=== PATIENT | male | born 1985 | race Caucasian/White ===

== ENCOUNTER 2018-02-08 23:08 | Emergency (ER) | payer OTHER, SELFPAY ==
[2018-02-08 23:08] VITALS: BP 132/73; PULSE 81; RESP 18; TEMP 36.4; O2SAT 99; BMI 33.1
--- NOTE | 2018-02-08 23:18 | ED.RN ---
pt reports drinking at the bar tonight and walking to the ed. pt reports that he is walking home.
--- NOTE | 2018-02-08 23:29 | ED.VIS.GEN ---
History of Present Illness Chief Complaint: Bite Informant: Patient Onset: Days - 2 Context: Gradual Onset Timing: Continuous Quality: red, swollen, painful Location: R hand Current Severity: Moderate Maximum Severity: Moderate Worsened by: shaking hands / palpation Relieved by: remaining still Narrative: 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 He states the cat is not ill, and he does not know what its rabies shot status is, but the cat is able to be monitored. This occurred 2 days ago, and he has gradually developed redness, pain and swelling surrounding the bite area. [id number]-iyoftpuu. Last tetanus unknown. Past Medical History - Allergies and Home Meds Allergies/Adverse Reactions: Allergies No Known Allergies Allergy (Verified 02/08/18 23:08) Primary Care Physician: Dennis White MD [Primary Care Provider] - 3-5 Days if not improving Past Medical History: None Smoking Status: Never smoker Review of Systems General: Denies: Chills, Fever Musculoskeletal: Reports: Swelling, Extremity Pain Skin: Reports: Wounds - w/ surrounding redness and occasional clear discharge from bite wounds Neurological: Denies: Weakness, Parasthesia, Numbness Physical Exam Vital Signs/Narrative: Vital Signs Temp Pulse Resp BP Pulse Ox 02/08/18 23:08 97.5 F L 81 18 132/73 H 99 Inital Vital Signs reviewed: Yes General: Well nourished, Well developed, - - well-appearing, nad Head: Normocephalic, Atraumatic Extremities: Tenderness - Throughout dorsum of right hand, and volar thenar eminence and first webspace. Bite wound is at the dorsal aspect of the first webspace and radial aspect of the proximal index finger. There is no discharge expressible from either of the bite wounds. There is no lymphangitis or epitrochlear lymphadenopathy. He has full range of motion of all flexor and extensor tendons throughout his fingers, and full range of motion of the wrist, all without any pain or difficulty. All compartments are soft. Skin: - - Erythema surrounding right hand wounds, into dorsum of hand, and into the volar thenar eminence but not the entire compartment. No erythema at or proximal to the wrist. No abscess. Neurological: Alert, Oriented x3, Cranial nerves II-XII grossly intact, Normal Strength, Normal Sensation, Normal Gait Psychological: Normal affect Diagnostic/Tx/Re-eval - Medical Decision Making Patient was amenable to a dose of IV Unasyn, his tetanus was updated, and I discussed rabies with him. He does not need vaccinated now, since the animal is able to be monitored for the next 10 days. He was advised that if the cat becomes ill within the next 10 days, he should seek evaluation for possible rabies vaccination. He is prescribed Augmentin and advised to follow-up or return if worse. We soaked his hand and dressed it with bacitracin. He is comfortable with the overall plan. ED Disposition - Plan for ED Patient: Disposition: Home or Assisted Living Chief Complaint: Bite Diagnosis: Pasteurella cellulitis due to cat bite, Immunization, tetanus-diphtheria Instructions: ED Bite Cat Prescriptions: Amoxicillin/Potassium Clav [Augmentin 875-125 Tablet] 1 ea PO BID #20 tab Referrals: Dennis White MD [Primary Care Provider] - 3-5 Days if not improving
[2018-02-08] MEDS: Diphth,Pertuss(Acell),Tet Vac 0.5 ML Vial IM (23:38)
[2018-02-09 00:49] VITALS: BP 122/76; PULSE 78; RESP 18; O2SAT 99
--- NOTE | 2018-02-09 00:50 | ED.RN ---
pt given written and verbal discharge instructions and home going prescriptions. pt verbalizes understanding and denies any further questions. pt iv d/c and covered with 2x2 gauze dressing and paper tape. pt ambulates out of dept by self.
--- OUTSIDE RECORDS SUMMARY | 2018-04-04 21:57 | XMS RPT_ITS ---
:1985 Author Organization [facility] Care Team Providers Name Role Phone Dennis White Primary Care Unavailable KANDACE GRIFFITH Attending Unavailable PROBLEMS PROBLEMS No Problem Records FoundPROCEDURES PROCEDURES No Procedure Records FoundRESULTS RESULTS EMERGENCY DEPARTMENT Observed: 02/09/2018 Status: F Source: TEMPE SUMMARY 12:28 AM [facility] [place], [place] REPOSITORY [facility] Medical Records Department [address] [place] [id number] Emergency Department Summary 02/08/18 2329 MR#: [id number] Acct: [id number] Name: PEDRITO OJEDA Rep #: [id number] : 1985 32 From: Kandace Griffith MD PCP: Dennis White MD Status: REG ER History of Present Illness Chief Complaint: Bite Informant: Patient Onset: Days - 2 Context: Gradual Onset Timing: Continuous Quality: red, swollen, painful Location: R hand Current Severity: Moderate Maximum Severity: Moderate Worsened by: shaking hands / palpation Relieved by: remaining still Narrative: 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 He states the cat is not ill, and he does not know what its rabies shot status is, but the cat is able to be monitored. This occurred 2 days ago, and he has gradually developed redness, pain and swelling surrounding the bite area. [id number]. Last tetanus unknown. Past Medical History - Allergies and Home Meds Allergies/Adverse Reactions: Allergies No Known Allergies Allergy (Verified 02/08/18 23:08) Primary Care Physician: Dennis White MD [Primary Care Provider] - 3-5 Days if not improving Past Medical History: None Smoking Status: Never smoker Review of Systems General: Denies: Chills, Fever Musculoskeletal: Reports: Swelling, Extremity Pain Skin: Reports: Wounds - w/ surrounding redness and occasional clear discharge from bite wounds Neurological: Denies: Weakness, Parasthesia, Numbness Physical Exam Vital Signs/Narrative: Vital Signs 02/08/18 23:08 97.5 F L 81 18 132/73 H 99 Inital Vital Signs reviewed: Yes General: Well nourished, Well developed, - - well-appearing, nad Head: Normocephalic, Atraumatic Extremities: Tenderness - Throughout dorsum of right hand, and volar thenar eminence and first webspace. Bite wound is at the dorsal aspect of the first webspace and radial aspect of the proximal index finger. There is no discharge expressible from either of the bite wounds. There is no lymphangitis or epitrochlear lymphadenopathy. He has full range of motion of all flexor and extensor tendons throughout his fingers, and full range of motion of the wrist, all without any pain or difficulty. All compartments are soft. Skin: - - Erythema surrounding right hand wounds, into dorsum of hand, and into the volar thenar eminence but not the entire compartment. No erythema at or proximal to the wrist. No abscess. Neurological: Alert, Oriented x3, Cranial nerves II-XII grossly intact, Normal Strength, Normal Sensation, Normal Gait Psychological: Normal affect Diagnostic/Tx/Re-eval - Medical Decision Making Patient was amenable to a dose of IV Unasyn, his tetanus was updated, and I discussed rabies with him. He does not need vaccinated now, since the animal is able to be monitored for the next 10 days. He was advised that if the cat becomes ill within the next 10 days, he should seek evaluation for possible rabies vaccination. He is prescribed Augmentin and advised to follow-up or return if worse. We soaked his hand and dressed it with bacitracin. He is comfortable with the overall plan. ED Disposition - Plan for ED Patient: Disposition: Home or Assisted Living Chief Complaint: Bite Diagnosis: Pasteurella cellulitis due to cat bite, Immunization, tetanus-diphtheria Instructions: ED Bite Cat Prescriptions: Amoxicillin/Potassium Clav [Augmentin 875-125 Tablet] 1 ea PO BID #20 tab Referrals: Dennis White MD [Primary Care Provider] - 3-5 Days if not improving What to do if you have Problems For any increased pain, shortness of breath, bleeding, nausea or vomiting, chest pain, or any unexpected problems, contact your Primary Care Provider. Call [facility] ([phone]) or report to the closest Emergency Room. Call 911 if necessary. 02/09/18 0028 <Electronically signed by Kandace Griffith MD> Date Kandace Griffith MD Cosigner Signature (If Indicated): Date CC: Dennis White MD ALLERGIES ALLERGIES DATE TYPE / CODE NAME / CODE REACTION SEVERITY SOURCE 02/08/2018 Drug No Known Unknown [facility] Allergy/4160 Allergies/F00 [facility] [address]134(SNOMED [id number](RXNOR Repository CT) M) ENCOUNTERS ENCOUNTERS ADMIT/DISCHARGE ACCOUNT ADMITTING ENCOUNTER LOCATION SOURCE NUMBER CLASS 02/08/2018/ [id number] Emergency [place] 8 [facility] ing:ED Repository PAYERS PAYERS ENCOUNTER GUARANTOR PAYER SUBSCRIBER SOURCE 02/08/2018 Pedrito Shanique Primary [place] [id number] [place] Insurance:MEDICAL [id number] [address]Dad: Number: Repository [id number] (HP) Date:[id number] [address]EW: 02/08/2018 Secondary NOT GIVENUNK Chanell Insurance:SELF PAY [facility] Number: Effective Repository Date:2018-02-08
== END 2018-02-09 00:51 | disposition home or self-care (01) ==
LOC: ED 23:37
PROVIDERS: Emergency Provider Emergency Medicine; Family Provider Family Medicine; PCP Family Medicine
DX: L03.113 Cellulitis of right upper limb (principal); W55.01XA Bitten by cat, initial encounter; Z23 Encounter for immunization
CPT/HCPCS: 90471; 90715; 96365; 99284; J7050; J0295

== ENCOUNTER 2019-10-08 22:49 | Emergency (ER) | payer OTHER, SELFPAY ==
[2019-10-08 22:50] VITALS: BP 139/74; PULSE 72; RESP 18; TEMP 36.6; O2SAT 100; BMI 31.6
--- NOTE | 2019-10-08 23:04 | ED.VISSUMM ---
- ER Visit Summary Date of Service: 10/08/19 Chief Complaint: [Chin laceration] History of Present Illness: The patient is a 33 M [presents to the emergency department complaint of an injury to his chin that occurred around 7:30 PM. Patient states he was playing lacrosse when another player got him in the chin with his helmet. No loss of consciousness. Patient continued to play. Patient went home and ate and the wound kept opening up. Patient is up-to-date on tetanus. He denies any other injuries.] Physical Examination: [HEENT-PERRLA, EOMI. Cranial nerves II through XII grossly intact. TMs clear. Mucous membranes moist. No adenopathy. Patient has a 3 cm laceration vertical central portion of the chin. No bony tenderness on exam. No malocclusion. No evidence of dental injury noted. Tenderness over the mandible. Cardiovascular-regular rate and rhythm without murmur or ectopy Lungs-clear to auscultation, chest wall stable without crepitus or subcu emphysema Abdomen-normoactive bowel sounds, soft, nontender, no rebound or rigidity, no peritoneal signs. Extremities-intact ?4, normal range of motion, normal pulses, atraumatic] Test Results: [None indicated] Emergency Department Course and Treatment: [Laceration repair-wound sterilely draped and prepped. Wound anesthetized locally with 1% lidocaine total 4 cc. Wound cleansed with Shur-Clens and irrigated with copious saline. Using 6-0 nylon a total of 4 single ruptured sutures placed with good wound edge approximation. Patient taught procedure well.] Treatment Plan: [] Patient referred to primary care physician for follow-up in 5 to 7 days for suture removal. Patient advised to return if increasing pain, redness, swelling, purulent drainage, or condition should worsen anyway. Disposition: [Discharged home in stable condition] Impression: [Chin laceration-3 cm-simple repair] This note was generated with [employer] dictation software. It may contain incorrect words, spelling, and punctuation that were not noted in review of the chart prior to signing ED Disposition - Plan for ED Patient: Referrals: NOT,DEFINED [Primary Care Provider] -
--- NOTE | 2019-10-08 23:18 | ED.DEP ---
ED Disposition - Plan for ED Patient: Instructions: ED Laceration Facial Sutr Tape Referrals: NOT,DEFINED [Primary Care Provider] - Ignacio Chappell MD [STAFF PHYSICIAN] - 5 Days for suture removal
== END 2019-10-08 23:26 | disposition home or self-care (01) ==
LOC: ED 23:21
PROVIDERS: Emergency Provider Emergency Medicine
DX: S01.81XA Laceration without foreign body of other part of head, initial encounter (principal); W51.XXXA Accidental striking against or bumped into by another person, initial encounter; Y93.65 Activity, lacrosse and field hockey; Y92.328 Other athletic field as the place of occurrence of the external cause; Y99.8 Other external cause status
CPT/HCPCS: 12013; 99282

== ENCOUNTER → 2019-11-13 10:39 | Outpatient (CLI) | payer OTHER, SELFPAY ==
[2019-11-13 10:41] LABS: Mucous, Urine 0 SEEN /hpf (<or=2+); Red Blood Cells-Urine 0 SEEN /hpf (0-5)
[2019-11-13 12:19] LABS: Color, Urine Yellow (Yellow); Glucose, Dipstick Normal (Normal); Ketone-Dipstick 5 mg/dl (Negative); Leukocyte Esterase-Dipstick 25 /ul (Negative); Nitrite-Dipstick Negative (Negative); Occult Blood-Urine Negative /ul (Negative); Protein-Dipstick Negative (Negative); Specific Gravity, Urine 1.025 (1.002-1.030); Urine Bilirubin Dipstick Negative (Negative); Urine Clarity Sl. Cloudy (Clear); Urine Urobilinogen Normal (Normal)
[2019-11-13 12:22] LABS: Absolute Lymphocyte Count 2.14 X10^3/uL (0.83-4.51); Absolute Neutrophil Count 2.5 X10^3/uL (2.0-7.7); Basophil# 0.03 X10^3/uL; Basophil% 0.6 % (0-1); Eosinophil# 0.06 X10^3/uL; Eosinophils% 1.1 % (0-5); Hematocrit 42.6 % (40-54); Hemoglobin 13.9 g/dL (13.0-16.5); Lymphocyte # 2.14 X10^3/ul (4.0); Lymphocyte % 40.2 % (19-41); Mean Corp Hgb Conc 32.6 g/dL (32-36); Mean Corpuscular Hgb 29.1 pg (27.0-32.0); Mean Corpuscular Volume 89.1 fL (80-94); Mean Platelet Vol. 10.1 fl (6.2-12.0); Monocyte# 0.56 X10^3/uL; Monocyte% 10.5 % (0-10); NRBC Flagged by Analyzer 0 % (0-5); Neutrophil # 2.52 X10^3/uL (2.7-7.7); Neutrophil % 47.2 % (47-70); Platelet Count 253 K/mm3 (150-450); RBC Distribution Width CV 13.2 % (11.6-14.6); RBC Distribution Width SD 43.1 fl (35.1-43.9); Red Blood Count 4.78 M/mm3 (4.6-6.2); White Blood Count 5.3 K/mm3 (4.4-11.0)
[2019-11-13 12:43] LABS: Bacteria 2+ /hpf (None Seen); Squamous Epithelial Cells - UA 0-5 SEEN /hpf (0-5); White Blood Cells 0-5 SEEN /hpf (0-5)
[2019-11-13 13:07] LABS: ALB/GLOB Ratio 1.2 RATIO (0.9-2.4); AST(SGOT) 36 U/L (15-37); Alanine Aminotransfer ALT/SGPT 40 U/L (16-61); Albumin, Serum 4.2 g/dL (3.2-5.0); Alkaline Phosphatase 52 U/L (45-117); Anion Gap 4 (5-15); BUN 18 mg/dL (7-18); BUN/Creat Ratio 15.4 RATIO (10-20); Calcium,Total 8.8 mg/dL (8.5-10.1); Chloride 105 mmol/L (98-107); Cholesterol 157 mg/dL (200); Creatinine, Serum 1.17 mg/dL (0.70-1.30); EST Glomerular Filtration Rate 75 mL/min (>60); Est Glom Filt Rate - Afr Amer 91 mL/min (>60); Globulin 3.4 g/dL (2.2-4.2); Glucose 82 mg/dL (74-106); High Density Lipoprotein 49 mg/dL; Potassium 4.2 mmol/L (3.5-5.1); Protein, Total 7.6 g/dL (6.4-8.2); Sodium Level 139 mmol/L (136-145); Thyroid Stim Hormone (TSH) 1.34 uIU/mL (0.358-3.74); Triglycerides 52 mg/dL; Very Low Density Lipoprotein 10 mg/dL (5-40)
== END ==
PROVIDERS: PCP Family Medicine; Referring Provider Family Medicine; Visit Provider Family Medicine
DX: Z00.00 Encounter for general adult medical examination without abnormal findings (principal)
CPT/HCPCS: 36415; 80053; 80061; 81001; 84443; 85025

== ENCOUNTER → 2022-01-19 | Outpatient (CLI) | payer OTHER, SELFPAY ==
[2022-01-19 17:45] LABS: Absolute Lymphocyte Count 2.22 X10^3/uL (0.83-4.51); Basophil# 0.03 X10^3/uL; Basophil% 0.4 % (0-1); Eosinophils% 1.4 % (0-5); Hematocrit 43.2 % (40-54); Hemoglobin 14.5 g/dL (13.0-16.5); Lymphocyte # 2.22 X10^3/ul (0.83-4.51); Lymphocyte % 32.1 % (19-41); Mean Corp Hgb Conc 33.6 g/dL (32-36); Mean Corpuscular Hgb 29.2 pg (27.0-32.0); Mean Corpuscular Volume 86.9 fL (80-94); Mean Platelet Vol. 10.3 fl (6.2-12.0); Monocyte# 0.55 X10^3/uL; Monocyte% 7.9 % (0-10); NRBC Flagged by Analyzer 0 % (0-5); Neutrophil % 57.9 % (47-70); Platelet Count 244 K/mm3 (150-450); RBC Distribution Width CV 12.9 % (11.6-14.6); RBC Distribution Width SD 40.6 fl (35.1-43.9); Red Blood Count 4.97 M/mm3 (4.6-6.2); White Blood Count 6.9 K/mm3 (4.4-11.0)
[2022-01-19 18:08] LABS: ALB/GLOB Ratio 1.2 RATIO (0.9-2.4); AST(SGOT) 29 U/L (15-37); Alanine Aminotransfer ALT/SGPT 36 U/L (16-61); Alkaline Phosphatase 47 U/L (45-117); Amylase 57 U/L (25-115); Anion Gap 8 (5-15); BUN 22 mg/dL (7-18); BUN/Creat Ratio 18.8 RATIO (10-20); Calcium,Total 9.1 mg/dL (8.5-10.1); Chloride 106 mmol/L (98-107); Creatinine, Serum 1.17 mg/dL (0.70-1.30); EST Glomerular Filtration Rate 74 mL/min (>60); Est Glom Filt Rate - Afr Amer 90 mL/min (>60); Globulin 3.3 g/dL (2.2-4.2); Glucose 99 mg/dL (74-106); Lipase 336 U/L (73-393); Protein, Total 7.3 g/dL (6.4-8.2); Sodium Level 138 mmol/L (136-145)
== END | disposition home or self-care (01) ==
LOC: MFPLAB 15:13
PROVIDERS: Nurse Practitioner Family; PCP Family Medicine; Referring Provider Family Medicine; Visit Provider Family Medicine
DX: R10.9 Unspecified abdominal pain (principal)
CPT/HCPCS: 36415; 80053; 82150; 83690; 85025

== ENCOUNTER → 2022-02-05 | Outpatient (CLI) | payer OTHER, SELFPAY ==
--- NOTE | 2022-02-05 07:54 | US_ITS ---
STUDY: ABDOMINAL ULTRASOUND REASON FOR EXAM: Male, 36 years old. RLQ pain/food related TECHNIQUE: Transabdominal ultrasound was performed with real-time and static ascencio scale imaging. TECHNICAL QUALITY: Adequate. COMPARISON: None. FINDINGS: Liver: The liver is mildly enlarged and measures 18.3 cm. There is increased echogenicity consistent with fatty infiltration. The bile ducts are within normal limits. There is hepatic color flow. The direction of portal flow is hepatopetal. There is no demonstrated mass lesion. Portal vein measurement: Gallbladder: Normal distended gallbladder. The gallbladder wall measures 3 mm. There is a negative sonographic Dorado''s sign. There is no pericholecystic fluid. There are no gallstones. Common Bile Duct (C.B.D.): The common bile duct measures 4 mm. Pancreas: There is nonvisualization of the pancreas due to overlying bowel gas. Spleen: Normal size of the spleen. The spleen measures 11.1 cm x 5.9 cm x 5.1 cm. Right Kidney: Normal size of the right kidney. The right kidney measures 11.8 cm x 6.7 cm x 6.4 cm. Normal renal cortex. The right cortex measures 1.6 cm. There is no demonstrated renal mass or cyst. There is no right hydronephrosis. Left Kidney: Normal size of the left kidney. The left kidney measures 12.7 cm x 6 cm x 6.1 cm. Normal renal cortex. The left cortex measures 1.7 cm. There is no demonstrated renal mass or cyst. There is no left hydronephrosis. Aorta: Unremarkable. I.V.C.: The IVC is patent. There is no ascites. US/Abdomen Complete IMPRESSION: Mild hepatomegaly. Diffuse fatty infiltration of the liver. Electronically Signed: Sukhjinder Hay MD at 15:15 EST ,
== END | disposition home or self-care (01) ==
PROVIDERS: PCP Family Medicine; Referring Provider Nurse Practitioner Family; Visit Provider Nurse Practitioner Family
DX: R10.9 Unspecified abdominal pain (principal)
CPT/HCPCS: 76700

== ENCOUNTER → 2022-04-03 | Outpatient (CLI) | payer OTHER, SELFPAY ==
[2022-04-03 13:12] LABS: ALB/GLOB Ratio 1.6 RATIO (0.9-2.4); AST(SGOT) 42 U/L (15-37); Alanine Aminotransfer ALT/SGPT 45 U/L (16-61); Albumin, Serum 4.5 g/dL (3.2-5.0); Alkaline Phosphatase 57 U/L (45-117); Anion Gap 8 (5-15); BUN 27 mg/dL (7-18); BUN/Creat Ratio 30.9 RATIO (10-20); Calcium,Total 9.8 mg/dL (8.5-10.1); Chloride 104 mmol/L (98-107); Creatinine, Serum 0.87 mg/dL (0.70-1.30); EST Glomerular Filtration Rate 104 mL/min (>60); Est Glom Filt Rate - Afr Amer 125 mL/min (>60); Globulin 2.9 g/dL (2.2-4.2); Glucose 87 mg/dL (74-106); Potassium 4.3 mmol/L (3.5-5.1); Protein, Total 7.4 g/dL (6.4-8.2); Sodium Level 139 mmol/L (136-145)
== END | disposition home or self-care (01) ==
LOC: MFPLAB 10:36
PROVIDERS: PCP Family Medicine; Referring Provider Family Medicine; Visit Provider Nurse Practitioner Family
DX: K70.0 Alcoholic fatty liver (principal)
CPT/HCPCS: 36415; 80053

== ENCOUNTER → 2022-10-08 | Outpatient (CLI) | payer OTHER, SELFPAY ==
[2022-10-08 15:19] LABS: ALB/GLOB Ratio 1.2 RATIO (0.9-2.4); AST(SGOT) 69 U/L (15-37); Alanine Aminotransfer ALT/SGPT 69 U/L (16-61); Alkaline Phosphatase 63 U/L (45-117); Anion Gap 2 (5-15); BUN 20 mg/dL (7-18); BUN/Creat Ratio 16.4 RATIO (10-20); Bilirubin, Direct 0.16 mg/dL (0.00-0.30); Calcium,Total 9.3 mg/dL (8.5-10.1); Chloride 108 mmol/L (98-107); Creatinine, Serum 1.22 mg/dL (0.70-1.30); EST Glomerular Filtration Rate 70 mL/min (>60); Est Glom Filt Rate - Afr Amer 85 mL/min (>60); Globulin 3.4 g/dL (2.2-4.2); Glucose 88 mg/dL (74-106); Potassium 4.4 mmol/L (3.5-5.1); Protein, Total 7.4 g/dL (6.4-8.2); Sodium Level 140 mmol/L (136-145)
== END | disposition home or self-care (01) ==
LOC: MFPLAB 12:26
PROVIDERS: PCP Family Medicine; Visit Provider Nurse Practitioner Family
DX: K70.0 Alcoholic fatty liver (principal)
CPT/HCPCS: 36415; 80053; 82248

== ENCOUNTER → 2022-10-26 | Outpatient (CLI) | payer OTHER, SELFPAY | END | disposition home or self-care (01) | PROVIDERS: PCP Family Medicine; Referring Provider Nurse Practitioner Family; Visit Provider Nurse Practitioner Family | DX: K70.0 Alcoholic fatty liver (principal) ==

== ENCOUNTER → 2022-10-29 | Outpatient (CLI) | payer OTHER, SELFPAY ==
[2022-10-29 18:31] LABS: ALB/GLOB Ratio 1.3 RATIO (0.9-2.4); AST(SGOT) 37 U/L (15-37); Alanine Aminotransfer ALT/SGPT 39 U/L (16-61); Albumin, Serum 4.4 g/dL (3.2-5.0); Alkaline Phosphatase 66 U/L (45-117); Anion Gap 7 (5-15); BUN 19 mg/dL (7-18); BUN/Creat Ratio 16.2 RATIO (10-20); Calcium,Total 9.3 mg/dL (8.5-10.1); Chloride 108 mmol/L (98-107); Creatinine, Serum 1.17 mg/dL (0.70-1.30); EST Glomerular Filtration Rate 74 mL/min (>60); Est Glom Filt Rate - Afr Amer 89 mL/min (>60); Globulin 3.3 g/dL (2.2-4.2); Glucose 96 mg/dL (74-106); Potassium 3.8 mmol/L (3.5-5.1); Protein, Total 7.7 g/dL (6.4-8.2); Sodium Level 141 mmol/L (136-145)
== END | disposition home or self-care (01) ==
PROVIDERS: PCP Family Medicine; Referring Provider Nurse Practitioner Family; Visit Provider Nurse Practitioner Family
DX: K70.0 Alcoholic fatty liver (principal)
CPT/HCPCS: 36415; 80053

== ENCOUNTER → 2023-04-05 | Outpatient (CLI) | payer OTHER, SELFPAY ==
--- OUTSIDE RECORDS SUMMARY | 2023-04-05 07:33 | XMS RPT_ITS | CCD ---
Author Name Unknown Address [address] [place] [address] Organization [facility] Care Team Providers Care Plaster Mixer Name Role Phone DENNY CRUZ Dilshad Primary Care Unavailable Results Test Name Value Interpretation Reference Range Facil ity Encounters Encounter Date Encounter Type Care Provider Facility Start: 02-14-2023 End: 02-14-2023 ambulatory DENNY Dilshad CRUZ Facility:[facility] Payers Date Payer Category Payer Unknown [id number] Progress note 02-14-2023 Note Date & Type Note Facility 02-14-2023 Note HNO ID: [id number] Author: Damaris Hernandez PA Service: ? Author Type: Physician Vulcanizer Operator Type: Progress Notes Filed: 02/14/2023 2:06 PM Note Text: This note was created using [employer]. Subjective Pedrito Ojeda is a 37 year old male. HPI 37-year-old male presents for left ring finger laceration. Patient states that he walked past a machine and cut his finger on an aluminum machine. He states that he is still able to move the finger. He had some bleeding from it. Not on any blood thinners. He states that the machine is dirty and is worried about potential infection. He denies history of diabetes. Last tetanus was in 2018. No past medical history on file. No past surgical history on file. ALLERGIES Patient has no known allergies. MEDICATIONS cephALEXin (KEFLEX) 500 mg capsule Take 1 capsule by mouth two times a day for 5 days. albuterol sulfate (PROAIR RESPICLICK) 90 mcg/actuation aepb Inhale 2 Puffs as instructed every 4 hours as needed. (Patient not taking: Reported on 02/14/2023) Tjbjlxyyuegtvzq-Honcvgpao-LD (BROMFED DM) 2-30-10 mg/5 mL syrup Take 10 mL by mouth three times daily as needed. (Patient not taking: Reported on 02/14/2023) benzonatate (TESSALON PERLES) 100 mg capsule Take 1-2 capsules by mouth three times daily as needed. (Patient not taking: Reported on 02/14/2023) No family history on file. Social History Tobacco Use Smoking status: Never Smokeless tobacco: Former Review of Systems Constitutional: Negative for fever. Respiratory: Negative for shortness of breath. Gastrointestinal: Negative for vomiting. Skin: Positive for wound. Negative for rash. Neurological: Negative for numbness. Objective BP 102/78 Pulse 72 Temp 36.4 ?C (97.6 ?F) Resp 21 Wt 124.8 kg (275 lb 3.2 oz) SpO2 98% Physical Exam Vitals and nursing note reviewed. Constitutional: General: He is not in acute distress. Appearance: Normal appearance. He is not toxic-appearing. Musculoskeletal: Left hand: Laceration present. No swelling, deformity, tenderness or bony tenderness. Normal range of motion. Normal sensation. There is no disruption of two-point discrimination. Normal capillary refill. Normal pulse. Hands: Comments: Flap-like 1.5 cm laceration over lateral surface of the left ring finger at the DIP joint. Normal flexion extension of the digit. Normal sensation. Cap refill less than 2 seconds. No active bleeding. No foreign body seen. No drainage. No erythema. Skin: General: Skin is warm and dry. Neurological: Mental Status: He is alert. UNIVERSAL PROTOCOL / SAFETY CHECKLIST Procedure to be Performed: Laceration repair with sutures Verbal consent obtained from patient. Sign In: A Moment of CARE was completed. No special equipment needed. Patient/Surrogate Stated/Verified: PATIENT VERIFIED(optional for EMERGENT procedures): Patient name, Date of , Relevant allergies, and The intended procedure Time Out Communication: Intended patient and procedure match the source documents. No relevant labs, photos, and/or imaging studies were applicable for review. Medications required for procedure verified. Sign Out: SIGN OUT (optional for EMERGENT procedures): No specimen collected. Post-procedure follow-up management communicated and Plan of Care Visit completed when applicable. Laceration repair: Wound cleansed with Hibiclens and sterile water. Irrigated with sterile water. 3 cc of 1% lidocaine injected locally around the laceration. 3 sutures placed- 4-0 Prolene. Patient tolerated procedure well. Bleeding controlled. Neurovascularly intact after procedure. Bacitracin and sterile bandage applied Assessment and Plan ASSESSMENT/PLAN: 1. Laceration of left ring finger without foreign body without damage to nail, initial encounter - ICD9: 883.0, ICD10: S61.215A -See procedure above. 3 sutures placed. -Patient given wound care instructions. Advised he may apply bacitracin ointment OTC. Suture removal in 7 to 10 days. -Keep wound clean and dry. -Rx for Keflex due to dirty work environment. -Tetanus is up-to-date. Diagnosis and treatment plan were discussed and questions were answered to the patient's satisfaction. Pt acknowledged understanding of concepts and follow up plan. Specific signs and symptoms that would indicate the need for higher level of care were discussed in detail warranting prompt ER evaluation. SIL Dunlap [facility] Summary Purpose Family History No Family History Records Found Advance Directives No Advanced Directives Records Found Additional Source Comments (unrecognized sect ion and content) No Status Records Found INFORMATION SOURCE (unrecogn ized section and content) FOR RECORDS PERTAINING TO PATIENTS WHO ARE OR HAVE BEEN ENROLLED IN A CHEMICAL DEPENDENCY/SUBSTANCEABUSE PROGRAM, SOME INFORMATION MAY BE OMITTED. This clinical summary was aggregated from multiple sources. Caution should be exercised in using it in the provision of clinical care. This summary normalizes information from multiple sources, and as a consequence, information in this document may materially change the coding, format and clinical context of patient data. In addition, data may be omitted in some cases. CLINICAL DECISIONS SHOULD BE BASED ON THE PRIMARY CLINICAL RECORDS. [employer] provides no warranty or guarantee of the accuracy or completeness of information in this document.
[2023-04-05 10:13] LABS: Absolute Lymphocyte Count 2.12 X10^3/uL (0.83-4.51); Absolute Neutrophil Count 2.6 X10^3/uL (2.0-7.7); Basophil# 0.05 X10^3/uL; Basophil% 0.9 % (0-1); Eosinophil# 0.07 X10^3/uL; Eosinophils% 1.3 % (0-5); Hematocrit 46.4 % (40-54); Lymphocyte # 2.12 X10^3/ul (0.83-4.51); Lymphocyte % 39.7 % (19-41); Mean Corp Hgb Conc 32.3 g/dL (32-36); Mean Corpuscular Hgb 27.7 pg (27.0-32.0); Mean Corpuscular Volume 85.8 fL (80-94); Mean Platelet Vol. 10.7 fl (6.2-12.0); Monocyte% 9.4 % (0-10); NRBC Flagged by Analyzer 0 % (0-5); Neutrophil # 2.58 X10^3/uL (2.7-7.7); Neutrophil % 48.3 % (47-70); Platelet Count 244 K/mm3 (150-450); RBC Distribution Width CV 13.4 % (11.6-14.6); Red Blood Count 5.41 M/mm3 (4.6-6.2); White Blood Count 5.3 K/mm3 (4.4-11.0)
[2023-04-05 10:39] LABS: ALB/GLOB Ratio 1.4 RATIO (0.9-2.4); AST(SGOT) 30 U/L (15-37); Alanine Aminotransfer ALT/SGPT 41 U/L (16-61); Albumin, Serum 4.2 g/dL (3.2-5.0); Alkaline Phosphatase 51 U/L (45-117); Anion Gap 3 (5-15); BUN 18 mg/dL (7-18); BUN/Creat Ratio 18.7 RATIO (10-20); Calcium,Total 9.2 mg/dL (8.5-10.1); Chloride 106 mmol/L (98-107); Cholesterol 196 mg/dL (200); Creatinine, Serum 0.96 mg/dL (0.70-1.30); EST Glomerular Filtration Rate 92 mL/min (>60); Est Glom Filt Rate - Afr Amer 112 mL/min (>60); Globulin 3.1 g/dL (2.2-4.2); Glucose 95 mg/dL (74-106); High Density Lipoprotein 42 mg/dL; Potassium 4.1 mmol/L (3.5-5.1); Protein, Total 7.3 g/dL (6.4-8.2); Sodium Level 138 mmol/L (136-145); Thyroid Stim Hormone (TSH) 1.35 uIU/mL (0.358-3.74); Triglycerides 211 mg/dL; Very Low Density Lipoprotein 42 mg/dL (5-40)
== END | disposition home or self-care (01) ==
LOC: MTLAB 07:23
PROVIDERS: PCP Family Medicine; Referring Provider Family Medicine; Visit Provider Family Medicine
DX: Z00.00 Encounter for general adult medical examination without abnormal findings (principal); Z13.1 Encounter for screening for diabetes mellitus; Z13.220 Encounter for screening for lipoid disorders
CPT/HCPCS: 36415; 80053; 80061; 84443; 85025

== ENCOUNTER → 2025-01-07 | Outpatient (CLI) | payer OTHER, SELFPAY ==
[2025-01-07 18:12] LABS: Hematocrit 43.2 % (40-54); Hemoglobin 14.7 g/dL (13.0-16.5); Immature Granulocytes Count 0.030 X10^3/uL (0.0-0.0); Mean Corp Hgb Conc 34.0 g/dL (32-36); Mean Corpuscular Volume 84.2 fL (80-94); Mean Platelet Vol. 10.1 fl (6.2-12.0); NRBC Flagged by Analyzer 0 % (0-5); Platelet Count 259 K/mm3 (150-450); RBC Distribution Width CV 13.2 % (11.6-14.6); RBC Distribution Width SD 41.2 fl (35.1-43.9); Red Blood Count 5.13 M/mm3 (4.6-6.2); White Blood Count 5.8 K/mm3 (4.4-11.0)
[2025-01-07 19:19] LABS: AST(SGOT) 46 U/L (<=37); Alanine Aminotransfer ALT/SGPT 32 U/L (<=46); Albumin, Serum 4.7 g/dL (3.5-5.0); Alkaline Phosphatase 51 U/L (40-129); Anion Gap 13 (5-15); BUN 21 mg/dL (4-19); BUN/Creat Ratio 19.2 RATIO (10-20); Calcium,Total 9.8 mg/dL (7.6-11.0); Carbon Dioxide 24.4 mmol/L (21.0-32.0); Chloride 102 mmol/L (98-108); Cholesterol 187 mg/dL (<=200); Globulin 2.7 g/dL (2.2-4.2); Glucose 87 mg/dL (70-99); Hepatitis B Surface Antigen Nonreactive (Nonreactive); Hepatitis C Antibody Nonreactive (Nonreactive); Low Density Lipoprotein Calc. 97 mg/dL; Potassium 4.1 mmol/L (3.3-5.1); Triglycerides 313 mg/dL; Very Low Density Lipoprotein 63 mg/dL (5-40); cholesterol:hdl ratio screen 5.05
== END | disposition home or self-care (01) ==
LOC: MFPLAB 14:47
PROVIDERS: PCP Family Medicine; Visit Provider Family Medicine
DX: E66.9 Obesity, unspecified (principal)
CPT/HCPCS: 36415; 80053; 80061; 84443; 85025; 86706; 86803; 87340

== ENCOUNTER → 2025-01-15 | Outpatient (CLI) | payer OTHER, SELFPAY ==
--- NOTE | 2025-01-15 07:11 | US_ITS ---
PROCEDURE: ABDOMEN LIMITED 01/15/2025 REASON FOR EXAM: FATTY LIVER TECHNIQUE: Procedure Code: USABDL Modality: US Procedure: ABDOMEN LIMITED COMPARISON: Prior study dated January 28, 2022. FINDINGS: Liver: Diffusely echogenic suggesting fatty infiltration. Hepatomegaly. The liver measures 18.1 cm. Gallbladder: No stones sludge wall thickening or tenderness. Common bile duct: Normal measuring 3.7 mm. . Pancreas: Obscured by bowel gas. Other: Visualized portions of the right kidney are unremarkable. No right upper quadrant ascites. US/Abdomen Limited IMPRESSION: Hepatomegaly. Diffuse fatty infiltration of the liver. Reading Location: [id number]
--- OUTSIDE RECORDS SUMMARY | 2025-01-15 07:27 | XMS RPT_ITS | CCD ---
Author Organization [facility] Care Team Providers Care County Engineer Name Role Phone Denny Mei MD Primary Care Provider WINTER CASTRO Attending Unavailable DENNY MEI Primary Care Unavailable Denny Mei Attending Unavailable Denny Mei Referring Unavailable Denny Mei Primary Care Unavailable Denny Mei Attending Unavailable Denny Mei Primary Care Unavailable Medications Current Medications Medication Drug Class(es) Dates Sig (Normalized) Sig (Original) doxycycline monohydrate 100 mg oral tablet (1 source) Tetracycline-class Drug Start: 09-16-2024 End: 09-23-2024 take 1 tablet by mouth twice daily doxycycline monohydrate 100 mg tablet Indications: Secondary infection of skin Take 1 tablet by mouth two times a day for 7 days. 14 tablet 09/16/2024 09/23/2024 Active predniSONE 10 mg oral tablet (1 source) Start: 09-16-2024 End: 09-28-2024 take 4 tablets by mouth once daily, then take 3 tablets by mouth once daily, then take 2 tablets by mouth once daily, then take 1 tablet by mouth once daily predniSONE (DELTASONE) 10 mg tablet Indications: Rhus dermatitis Take 4 tablets by mouth once daily for 3 days, THEN 3 tablets once daily for 3 days, THEN 2 tablets once daily for 3 days, THEN 1 tablet once daily for 3 days. 30 tablet 09/16/2024 09/28/2024 Active triamcinolone acetonide 1 mg/ml topical cream (1 source) Corticosteroid Start: 09-16-2024 triamcinolone acetonide (KENALOG) 0.1 % cream Indications: Rhus dermatitis Apply to affected area two times a day. 80 g 09/16/2024 Active Completed/Discontinued Medications Medication Drug Class(es) Dates Sig (Normalized) Sig (Original) 200 actuat albuterol 0.09 mg/actuat dry powder inhaler (1 source) beta2-Adrenergic Agonist Start: 04-30-2019 End: 09-16-2024 take 2 puff(s) by inhalation every four hours as needed albuterol sulfate (PROAIR RESPICLICK) 90 mcg/actuation aepb Indications: SOB (shortness of breath) Inhale 2 Puffs as instructed every 4 hours as needed. 1 Inhaler 04/30/2019 09/16/2024 Discontinued benzonatate 100 mg oral capsule (1 source) Non-narcotic Antitussive Start: 04-30-2019 End: 09-16-2024 take 1-2 capsules by mouth three times daily as needed benzonatate (TESSALON PERLES) 100 mg capsule Indications: Influenza B Take 1-2 capsules by mouth three times daily as needed. 30 capsule 04/30/2019 09/16/2024 Discontinued brompheniramine maleate 0.4 mg/ml / dextromethorphan hydrobromide 2 mg/ml / pseudoephedrine hydrochloride 6 mg/ml oral solution (1 source) alpha-Adrenergic Agonist, Uncompetitive D-wqybjj-C-aspartat e Receptor Antagonist, Sigma-1 Agonist Start: 04-30-2019 End: 09-16-2024 take 10 mL by mouth every eight hours as needed for dyspnea and dyspnea Brompheniramine-P seudoeph-DM (BROMFED DM) 2-30-10 mg/5 mL syrup Indications: SOB (shortness of breath) Take 10 mL by mouth three times daily as needed. 240 mL 04/30/2019 09/16/2024 Discontinued Problems Problem Classification Problem Date Documented Date Episodic/Chronic Alcohol-related disorders (1 source) Alcoholic fatty liver; Translations: [Alcoholic fatty liver] Onset: 01-12-2025 Chronic Allergic reactions (2 sources) Contact dermatitis due to Genus Toxicodendron; Translations: [Unspecified contact dermatitis due to plants, except food] Onset: 09-16-2024 09-16-2024 Episodic Immunizations and screening for infectious disease (4 sources) Requires tetanus and diphtheria vaccination; Translations: [Encounter for immunization] 02-10-2018 Episodic Joint disorders and dislocations; trauma-related (1 source) Chondromalacia of patella; Translations: [Chondromalacia patellae, unspecified knee] Onset: 03-19-2002 07-07-2024 Chronic Skin and subcutaneous tissue infections (6 sources) Cellulitis; Translations: [Cellulitis, unspecified] Onset: 09-16-2024 02-10-2018 Episodic Results Test Name Value Interpretation Reference Range Facil ity CBC W/Diff, Automatedon 10-3 Absolute Lymph 1.94 X10 3/uL Normal 0.83-4.51 [facility] Comment on above: Order Comment: Order Date: 01/07/25 Order Info: 0184-1 - CBCD Performed By: #### L 100.0100, L500.4050, L500.4100, L501.9520 #### [facility] [address] [place], [address] Absolute Neut 3.2 X10 3/uL Normal 2.0-7.7 [facility] Comment on above: Order Comment: Order Date: 01/07/25 Order Info: 0184-1 - CBCD Performed By: #### L 100.0100, L500.4050, L500.4100, L501.9520 #### [facility] [address] [place], [address] Basophils/100 WBC (Bld) 0.9 % Normal 0-1 [facility] Comment on above: Order Comment: Order Date: 01/07/25 Order Info: 0184-1 - CBCD Performed By: #### L 100.0100, L500.4050, L500.4100, L501.9520 #### [facility] [address] [place], [address] Eosinophils/100 WBC (Bld) 1.6 % Normal 0-5 [facility] Comment on above: Order Comment: Order Date: 01/07/25 Order Info: 0184-1 - CBCD Performed By: #### L 100.0100, L500.4050, L500.4100, L501.9520 #### [facility] [address] [place], [address] Erythrocyte distribution width (RBC) [Ratio] 13.2 % Normal 11.6-14.6 [facility] Comment on above: Order Comment: Order Date: 01/07/25 Order Info: 0184-1 - CBCD Performed By: #### L 100.0100, L500.4050, L500.4100, L501.9520 #### [facility] [address] [place], [address] Hematocrit (Bld) [Volume fraction] 43.2 % Normal 40-54 [facility] Comment on above: Order Comment: Order Date: 01/07/25 Order Info: 0184-1 - CBCD Performed By: #### L 100.0100, L500.4050, L500.4100, L501.9520 #### [facility] [address] [place], [address] Hemoglobin (Bld) [Mass/Vol] 14.7 g/dL Normal 13.0-16.5 [facility] Comment on above: Order Comment: Order Date: 01/07/25 Order Info: 0184-1 - CBCD Performed By: #### L 100.0100, L500.4050, L500.4100, L501.9520 #### [facility] [address] [place], [address] IG% 0.500 Normal 0.0-0.9 [facility] Comment on above: Order Comment: Order Date: 01/07/25 Order Info: 0184-1 - CBCD Result Comment: IG% - Immature Granulocytes (promyelocytes, myelocytes and metamyelocytes) > 1% indicates that a LEFT SHIFT is Present. Performed By: #### L 100.0100, L500.4050, L500.4100, L501.9520 #### [facility] [address] [place], [address] Lymphocytes/100 WBC (Bld) 33.5 % Normal 19-41 [facility] Comment on above: Order Comment: Order Date: 01/07/25 Order Info: 0184-1 - CBCD Performed By: #### L 100.0100, L500.4050, L500.4100, L501.9520 #### [facility] [address] [place], [address] MCH (RBC) [Entitic mass] 28.7 pg Normal 27.0-32.0 [facility] Comment on above: Order Comment: Order Date: 01/07/25 Order Info: 0184-1 - CBCD Performed By: #### L 100.0100, L500.4050, L500.4100, [id number] #### [facility] [address] [place], [address] MCHC (RBC) [Mass/Vol] 34.0 g/dL Normal 32-36 [facility] Comment on above: Order Comment: Order Date: 01/07/25 Order Info: 0184-1 - CBCD Performed By: #### L 100.0100, L500.4050, L500.4100, [id number] #### [facility] [address] [place], [address] MCV (RBC) [Entitic vol] 84.2 fL Normal 80-94 [facility] Comment on above: Order Comment: Order Date: 01/07/25 Order Info: 0184-1 - CBCD Performed By: #### L 100.0100, L500.4050, L500.4100, [id number] #### [facility] [address] [place], [address] Monocytes/100 WBC (Bld) 8.3 % Normal 0-10 [facility] Comment on above: Order Comment: Order Date: 01/07/25 Order Info: 0184-1 - CBCD Performed By: #### L 100.0100, L500.4050, L500.4100, [id number] #### [facility] [address] [place], [address] Neutrophils/100 WBC (Bld) 55.2 % Normal 47-70 [facility] Comment on above: Order Comment: Order Date: 01/07/25 Order Info: 0184-1 - CBCD Performed By: #### L 100.0100, L500.4050, L500.4100, [id number] #### [facility] [address] [place], [address] Nucleated RBC (Bld) [#/Vol] 0 10*3/uL Normal 0-5 [facility] Comment on above: Order Comment: Order Date: 01/07/25 Order Info: 0184-1 - CBCD Performed By: #### L 100.0100, L500.4050, L500.4100, [id number] #### [facility] [address] [place], [address] Platelet mean volume (Bld) [Entitic vol] 10.1 fL Normal 6.2-12.0 [facility] Comment on above: Order Comment: Order Date: 01/07/25 Order Info: 0184- - CBCD Performed By: #### L 100.0100, L500.4050, L500.4100, L501.9520 #### [facility] [address] [place], [address] Platelets (Bld) [#/Vol] 259 10*3/uL Normal 150-450 [facility] Comment on above: Order Comment: Order Date: 01/07/25 Order Info: 0184-1 - CBCD Performed By: #### L 100.0100, L500.4050, L500.4100, [id number] #### [facility] [address] [place], [address] RBC (Bld) [#/Vol] 5.13 10*6/uL Normal 4.6-6.2 [facility] Comment on above: Order Comment: Order Date: 01/07/25 Order Info: 0184-1 - CBCD Performed By: #### L 100.0100, L500.4050, L500.4100, [id number] #### [facility] [address] [place], [address] RDW SD 41.2 fl Normal 35.1-43.9 [facility] Comment on above: Order Comment: Order Date: 01/07/25 Order Info: 0184-1 - CBCD Performed By: #### L 100.0100, L500.4050, L500.4100, [id number] #### [facility] [address] [place], [address] WBC (Bld) [#/Vol] 5.8 10*3/uL Normal 4.4-11.0 [facility] Comment on above: Order Comment: Order Date: 01/07/25 Order Info: 0184-1 - CBCD Performed By: #### L 100.0100, L500.4050, L500.4100, [id number] #### [facility] [address] [place], [address] Comprehensive Metabolic Prof ilon 01-07-2025 Albumin [Mass/Vol] 4.7 g/dL Normal 3.5-5.0 [facility] Comment on above: Order Comment: Order Date: 01/07/25 Order Info: 0786-1 - CMP Order Info: [id number] - LIPID Order Info: 3016-3 - TSH Performed By: #### L 100.0100, L500.4050, L500.4100, L501.9520 #### [facility] [address] [place], [address] Albumin/Globulin [Mass ratio] 1.7 {ratio} Normal 0.9-2.4 [facility] Comment on above: Order Comment: Order Date: 01/07/25 Order Info: 0786-1 - CMP Order Info: [id number] - LIPID Order Info: 3015-05 - TSH Performed By: #### L 100.0100, L500.4050, L500.4100, L501.9520 #### [facility] [address] [place], [address] ALK PHOS 51 U/L Normal 40-129 [facility] Comment on above: Order Comment: Order Date: 01/07/25 Order Info: 785- - CMP Order Info: - LIPID Order Info: [id number] - TSH Performed By: #### L 100.0100, L500.4050, L500.4100, L501.9520 #### [facility] [address] [place], [address] ALT [Catalytic activity/Vol] 32 U/L Normal <=46 [facility] Comment on above: Order Comment: Order Date: 01/07/25 Order Info: 785-03 - CMP Order Info: - LIPID Order Info: 3015-05 - TSH Performed By: #### L 100.0100, L500.4050, L500.4100, [id number] #### [facility] [address] [place], [address] AST [Catalytic activity/Vol] 46 U/L High <=37 [facility] Comment on above: Order Comment: Order Date: 01/07/25 Order Info: 785-03 - CMP Order Info: - LIPID Order Info: [id number] - TSH Performed By: #### L 100.0100, L500.4050, L500.4100, [id number] #### [facility] [address] [place], [address] Bilirubin [Mass/Vol] 0.30 mg/dL Normal 0.00-1.30 [facility] Comment on above: Order Comment: Order Date: 01/07/25 Order Info: 785-03 - CMP Order Info: - LIPID Order Info: 3015-05 - TSH Performed By: #### L 100.0100, L500.4050, L500.4100, [id number] #### [facility] [address] [place], [address] BUN/CRE 19.2 RATIO Normal 10-20 [facility] Comment on above: Order Comment: Order Date: 01/07/25 Order Info: 785- - CMP Order Info: - LIPID Order Info: 3 - TSH Performed By: #### L 100.0100, L500.4050, L500.4100, [id number] #### [facility] [address] [place], [address] Calcium [Mass/Vol] 9.8 mg/dL Normal 7.6-11.0 [facility] Comment on above: Order Comment: Order Date: 01/07/25 Order Info: 785-03 - CMP Order Info: - LIPID Order Info: 3015-05 - TSH Performed By: #### L 100.0100, L500.4050, L500.4100, [id number] #### [facility] [address] [place], [address] Chloride [Moles/Vol] 102 mmol/L Normal 98-108 [facility] Comment on above: Order Comment: Order Date: 01/07/25 Order Info: 785-03 - CMP Order Info: - LIPID Order Info: [id number] - TSH Performed By: #### L 100.0100, L500.4050, L500.4100, [id number] #### [facility] [address] [place], [address] CO2 [Moles/Vol] 24.4 mmol/L Normal 21.0-32.0 [facility] Comment on above: Order Comment: Order Date: 01/07/25 Order Info: 785-03 - CMP Order Info: - LIPID Order Info: 3015-05 - TSH Performed By: #### L 100.0100, L500.4050, L500.4100, L501.9520 #### [facility] [address] [place], [address] Creatinine [Mass/Vol] 1.09 mg/dL Normal 0.70-1.20 [facility] Comment on above: Order Comment: Order Date: 01/07/25 Order Info: 0786- - CMP Order Info: - LIPID Order Info: 3 - TSH Performed By: #### L 100.0100, L500.4050, L500.4100, [id number] #### [facility] [address] [place], [address] GAP 13 Normal 5-15 [facility] Comment on above: Order Comment: Order Date: 01/07/25 Order Info: 785-03 - CMP Order Info: - LIPID Order Info: [id number] - TSH Performed By: #### L 100.0100, L500.4050, L500.4100, L501.9520 #### [facility] [address] [place], [address] GFR/1.73 sq M.predicted among non-blacks MDRD (S/P/Bld) [Vol rate/Area] 87 mL/min/{1.73_m2} Normal >60 [facility] Comment on above: Order Comment: Order Date: 01/07/25 Order Info: 0786 - CMP Order Info: [id number] - LIPID Order Info: 3013 - TSH Result Comment: mL/m in/1.73m2 CKD-EPI Creatinine Equation (2020) Performed By: #### L 100.0100, L500.4050, L500.4100, L501.9520 #### [facility] [address] [place], [address] Globulin (S) [Mass/Vol] 2.7 g/dL Normal 2.2-4.2 [facility] Comment on above: Order Comment: Order Date: 01/07/25 Order Info: 0786-1 - CMP Order Info: [id number] - LIPID Order Info: 3 - TSH Performed By: #### L 100.0100, L500.4050, L500.4100, L501.9520 #### [facility] [address] [place], [address] Glucose [Mass/Vol] 87 mg/dL Normal 70-99 [facility] Comment on above: Order Comment: Order Date: 01/07/25 Order Info: 07- - CMP Order Info: [id number] - LIPID Order Info: 3015-05 - TSH Performed By: #### L 100.0100, L500.4050, L500.4100, L501.9520 #### [facility] [address] [place], [address] Potassium [Moles/Vol] 4.1 mmol/L Normal 3.3-5.1 [facility] Comment on above: Order Comment: Order Date: 01/07/25 Order Info: 07 - CMP Order Info: [id number] - LIPID Order Info: [id number] - TSH Performed By: #### L 100.0100, L500.4050, L500.4100, L501.9520 #### [facility] [address] [place], [address] Sodium [Moles/Vol] 140 mmol/L Normal 133-145 [facility] Comment on above: Order Comment: Order Date: 01/07/25 Order Info: 0786-1 - CMP Order Info: [id number] - LIPID Order Info: 3 - TSH Performed By: #### L 100.0100, L500.4050, L500.4100, L501.9520 #### [facility] [address] [place], [address] T PROT 7.4 g/dL Normal 5.9-8.4 [facility] Comment on above: Order Comment: Order Date: 01/07/25 Order Info: 0786-1 - CMP Order Info: [id number] - LIPID Order Info: 3015-3 - TSH Performed By: #### L 100.0100, L500.4050, L500.4100, L501.9520 #### [facility] [address] [facility] [place], [address] Urea nitrogen [Mass/Vol] 21 mg/dL High 4-19 [facility] Comment on above: Order Comment: Order Date: 01/07/25 Order Info: 0786 - CMP Order Info: [id number] - LIPID Order Info: 3 - TSH Performed By: #### L 100.0100, L500.4050, L500.4100, [id number] #### [facility] [address] [place] [place], [address] Hepatitis B Surface Antibody on 01-07-2025 HEP B Surf Ab Indetermin Normal [facility] Comment on above: Result Comment: <8.5 mIU/mL: Non-Reactive 8.5<= x <11.5 mIU/mL: Indeterminate >=11.5 mIU/mL: Reactive Non Reactive: Inconsistent with immunity less than <10 mIU/mL Reactive: Consistent with immunity greater than or equal to 10 mIU/mL Performed By: #### L 3890.6102, L3890.6301, L3890.6202 #### [facility] [address], [place], [id number] Hepatitis C Antibodyon 01-07 Hepatitis C Ab Non-Reactive Normal Nonreactive [facility] Comment on above: Order Comment: Order Date: 01/07/25 Order Info: 0786-1 - CMP Order Info: [id number] - LIPID Order Info: 3 - TSH Result Comment: Reac tive: Presumptive evidence of antibodies to HCV. Follow CDC recommendations for supplemental testing. Non-Reactive: Antibodies to HCV were not detected; does not exclude the possibility of exposure to HCV Reactive Results are presumptive evidence of antibodies to HCV. Follow CDC recommendations for supplemental testing. Order confirmation testing: HCV Quant by PCR testing - HCVPCR lc#[id number] Non Reactive: < 0.8 Equivocal: >/= 0.8 to < 1.0 Reactive: >/= 1.0 The [facility] requires that a reactive/equivocal HCV antibody result be sent out for confirmation. HCV Quant by PCR testing. Performed By: #### L 3890.6102, L3890.6301, L3890.6202 #### [facility] [address] [place], [address] L3890.6102on 01-07-2025 HEP B Surf Ag Non-Reactive Normal Nonreactive [facility] Comment on above: Order Comment: Order Date: 01/07/25 Order Info: 07- - CMP Order Info: - LIPID Order Info: 3 - TSH Result Comment: Reac tive: Presumptive evidence of HBV. Repeatedly reactive samples must be confirmed using a neutralization test ([employer] HBsAg Confirmatory Test) Non-Reactive: HBsAg not detected; does not exclude the possibility of exposure to HBV Performed By: #### L 3890.6102, L3890.6301, L3890.6202 #### [facility] [address] [place], [place], [id number] Lipid Profileon 01-07-2025 CHOL:HDL 5.05 Normal [facility] Comment on above: Order Comment: Order Date: 01/07/25 Order Info: 07 - CMP Order Info: - LIPID Order Info: 3 - TSH Performed By: #### L 100.0100, L500.4050, L500.4100, L501.9520 #### [facility] [address] [place], [place], [address] Cholesterol [Mass/Vol] 187 mg/dL Normal <=200 [facility] Comment on above: Order Comment: Order Date: 01/07/25 Order Info: 0786-1 - CMP Order Info: - LIPID Order Info: 3 - TSH Result Comment: Chol esterol level, Desirable <200 mg/dL Borderline high cholesterol 200-239 mg/dL High cholesterol >=240 mg/dL Recommendations of the NCEP Adult Treatment Panel for the following risk-cutoff thresholds for the [place] population. Performed By: #### L 100.0100, L500.4050, L500.4100, L501.9520 #### [facility] [address] [place], [address] Cholesterol in HDL [Mass/Vol] 37 mg/dL Low [facility] Comment on above: Order Comment: Order Date: 01/07/25 Order Info: 785-1 - CMP Order Info: [id number] - LIPID Order Info: 3 - TSH Result Comment: Anika onal Cholesterol Education Program (NCEP) guidelines: <40 mg/dL: Low HDL-cholesterol (major risk factor for CHD) >= 60 mg/dL: High HDL-cholesterol (negative risk factor for CHD) HDL-cholesterol is affected by a number of factors, e.g. smoking, exercise, hormones, sex and age. Performed By: #### L 100.0100, L500.4050, L500.4100, L501.9520 #### [facility] [address] [place], [address] Cholesterol in LDL [Mass/Vol] 97 mg/dL Normal [facility] Comment on above: Order Comment: Order Date: 01/07/25 Order Info: 785- - CMP Order Info: [id number] - LIPID Order Info: 3015-3 - TSH Result Comment: Bord ffthso=495-029 mg/dL Higher Dehn=953 mg/dL or greater Tim Equation 2020 for LDL-C Performed By: #### L 100.0100, L500.4050, L500.4100, L501.9520 #### [facility] [address] [place], [address] Cholesterol in VLDL [Mass/Vol] 63 mg/dL High 5-40 [facility] Comment on above: Order Comment: Order Date: 01/07/25 Order Info: 07-1 - CMP Order Info: [id number] - LIPID Order Info: [id number] - TSH Performed By: #### L 100.0100, L500.4050, L500.4100, L501.9520 #### [facility] [address] [place], [place], [address] Triglyceride [Mass/Vol] 313 mg/dL High [facility] Comment on above: Order Comment: Order Date: 01/07/25 Order Info: 0786-1 - CMP Order Info: [id number] - LIPID Order Info: [id number] - TSH Result Comment: The drugs N-Acetylcysteine and Metamizole may falsely depress this assay. Normal range: <150 mg/dL Borderline High: 150-199 mg/dL High: 200-499 mg/dL Very High: >500 mg/dL Performed By: #### L 100.0100, L500.4050, L500.4100, L501.9520 #### [facility] [address] [place], [place], [address] Thyroid Stim Hormone (TSH)on 01-07-2025 TSH 0.728 uIU/mL Normal 0.300-4.200 [facility] Comment on above: Order Comment: Order Date: 01/07/25 Order Info: 0786-1 - CMP Order Info: [id number] - LIPID Order Info: [id number] - TSH Performed By: #### L 100.0100, L500.4050, L500.4100, L501.9520 #### [facility] [address] [place], [place], [address] CNOVon 09-16-2024 CNOV Office Visit (KATHARINE) ---- PEDRITO OJEDA ([id number]) 1985 M Date Time Provider Department 09/16/24 1:00 PM WINTER CASTRO During your visit today, we recorded the following information about you: Temperature Pulse Respiration Blood pressure 98.3 degrees 88/minute 16/minute 122/80 Weight 117 kg Winter Castro APRN.CNP 09/16/2024 1:20 PM Signed [facility] Subjective HPI HPI Pedrito Ojeda is a 38 year old male who presents today for CC of itchy rash, 1 painful spot. This started few days ago. Has tried otc medication for relief. Symptoms are worsened by nothing. Risk factors works with [employer]. .Patient presents with: poison layla: X 2 days left leg History reviewed. No pertinent past medical history. No past surgical history on file. ALLERGIES Patient has no known allergies. MEDICATIONS predniSONE (DELTASONE) 10 mg tablet Take 4 tablets by mouth once daily for 3 days, THEN 3 tablets once daily for 3 days, THEN 2 tablets once daily for 3 days, THEN 1 tablet once daily for 3 days. doxycycline monohydrate 100 mg tablet Take 1 tablet by mouth two times a day for 7 days. triamcinolone acetonide (KENALOG) 0.1 % cream Apply to affected area two times a day. No family history on file. Social History Tobacco Use Smoking status: Never Smokeless tobacco: Former Review of Systems Constitutional: Negative for fever. Musculoskeletal: Negative for arthralgias, joint swelling and myalgias. Skin: Positive for rash. Negative for wound. Objective BP 122/80 Pulse 88 Temp 36.8 ?C (98.3 ?F) (Tympanic) Resp 16 Wt 117 kg (257 lb 15 oz) SpO2 98% Physical Exam Constitutional: General: He is not in acute distress. Appearance: He is not toxic-appearing or diaphoretic. HENT: Head: Normocephalic and atraumatic. Skin: General: Skin is warm and dry. Findings: Rash present. Rash is vesicular (distribution linear ). Neurological: Mental Status: He is alert and oriented to person, place, and time. {ASSESSMENT/PLAN: 1. Rhus dermatitis - ICD9: 692.6, ICD10: L25.5 (primary diagnosis) - Oral Steriod tx -Prednisone taper - Topical steriod tx with Rx for steriod cream/ointment- see orders - discussed skin care of rash - follow up if symptoms persist or worsen. - PREDNISONE 10 MG TABLET - TRIAMCINOLONE ACETONIDE 0.1 % TOPICAL CREAM 2. Secondary infection of skin - ICD9: 686.8, ICD10: L08.89 -use medication as prescribed -follow up if symptoms persist, worsen, change - DOXYCYCLINE MONOHYDRATE 100 MG TABLET Winter Castro APRN.PATHOLOGY SUPERVISOR History and Record Review External record(s) reviewed: prior outpatient record. Disposition The patient was discharged. Procedures Allergies As of Date: 09/16/2024 (No Known Allergies) Date Reviewed: 09/16/2024 Reviewed by: Alexa Rivera LPN - Fully Assessed Reason for Visit: poison layla [Other] Cmt: X 2 days left leg Primary Visit Diagnosis:Rhus dermatitis [L25.5] Other Visit Diagnosis:Secondary infection of skin [L08.89] Order(s):predniSONE (DELTASONE) 10 mg tabletTake 4 tablets by mouth once daily for 3 days, THEN 3 tablets once daily for 3 days, THEN 2 tablets once daily for 3 days, THEN 1 tablet once daily for 3 days.Disp: 30 tabletRfl: 0 doxycycline monohydrate 100 mg tabletTake 1 tablet by mouth two times a day for 7 days.Disp: 14 tabletRfl: 0 triamcinolone acetonide (KENALOG) 0.1 % creamApply to affected area two times a day.Disp: 80 gRfl: 0 Prescriptions as of 09/16/2024 - predniSONE (DELTASONE) 10 mg tablet Take 4 tablets by mouth once daily for 3 days, THEN 3 tablets once daily for 3 days, THEN 2 tablets once daily for 3 days, THEN 1 tablet once daily for 3 days. - doxycycline monohydrate 100 mg tablet Take 1 tablet by mouth two times a day for 7 days. - triamcinolone acetonide (KENALOG) 0.1 % cream Apply to affected area two times a day. 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 DOXYCYCLINE MONOHYDRATE 100 MG TABLET 14 t* 0 09/16/2024 09/23/2024 Cmt: May transfer to [facility] if less expensive. Route: PO Sig: Take 1 tablet by mouth two times a day for 7 days. TRIAMCINOLONE ACETONIDE 0.1 % TOPICA* 80 g 0 09/16/2024 Route: TOP Sig: Apply to affected area two times a day. Medications Discontinued During This Encounter Prescriptions - albuterol sulfate (PROAIR RESPICLICK) 90 mcg/actuation aepb (Discontinued) Reported on 02/14/2023 - Brompheniramine-Pse udoeph-DM (BROMFED DM) 2-30-10 mg/5 mL syrup (Discontinued) Reported on 02/14/2023 - benzonata (more content not included)... Normal [facility] Loaiza Basophil percentageOrdered B y: Dennise Pruitt on 10-29-2022 Bilirubin [Mass/Vol] 0.40 mg/dL 0.20-1.00 [facility] Comment on above: For patients on eltr ombopag therapy, use of Dimension Lytle TBIL is not recommended. Chloride [Moles/Vol] 108 mmol/L 98-107 [facility] Glucose [Mass/Vol] 96 mg/dL 74-106 [facility] Potassium [Moles/Vol] 3.8 mmol/L 3.5-5.1 [facility] Protein [Mass/Vol] 7.7 g/dL 6.4-8.2 [facility] Sodium [Moles/Vol] 141 mmol/L 136-145 [facility] Laboratory - Chemistry and C hemistry - challengeOrdered By: Dennise Pruitt on 10-29-2022 ALP [Catalytic activity/Vol] 66 U/L 45-117 [facility] ALT [Catalytic activity/Vol] 39 U/L 16-61 [facility] CO2 [Moles/Vol] 26.0 mmol/L 21.0-32.0 [facility] Globulin (S) [Mass/Vol] 3.3 g/dL 2.2-4.2 [facility] Urea nitrogen/Creatinine [Mass ratio] 16.2 mg/mg 10-20 [facility] No Panel InformationOrdered By: Dennise Pruitt on 10-29-2022 Estimated GFR (MDRD) Amer 89 mL/min >60 [facility] Comment on above: GFR Calc Estimated GFR (MDRD) Non-Af Amer 74 mL/min >60 [facility] Comment on above: Non- GFR Calc Serum or plasma albumin joel urement (mass/volume)Ordered By: Dennise Pruitt on 10-29-2022 Albumin [Mass/Vol] 4.4 g/dL 3.2-5.0 [facility] Serum or plasma albumin/glob ulin mass ratioOrdered By: Dennise Pruitt on 10-29-2022 Albumin/Globulin [Mass ratio] 1.3 {ratio} 0.9-2.4 [facility] Serum or plasma calcium joel urement (mass/volume)Ordered By: Dennise Pruitt on 10-29-2022 Calcium [Mass/Vol] 9.3 mg/dL 8.5-10.1 [facility] Serum or plasma creatinine m easurement (mass/volume)Ordered By: Dennise Pruitt on 10-29-2022 Creatinine [Mass/Vol] 1.17 mg/dL 0.70-1.30 [facility] Comment on above: The validity of the calculated GFR & GFRAA in patients over 70 years has not been determined. Clinical correlation is essential. Serum or plasma urea nitroge n measurement (mass/volume)Ordered By: Dennise Pruitt on 10-29-2022 Urea nitrogen [Mass/Vol] 19 mg/dL 7-18 [facility] Thin prep Papanicolaou smear with manual screeningOrdered By: Dennise Pruitt on 10-29-2022 Thin prep Papanicolaou smear with manual screening 37 U/L 15-37 [facility] Thin prep Papanicolaou smear with manual screening 7 5-15 [facility] Basophil percentageOrdered B y: Dennise Pruitt on 10-08-2022 Bilirubin [Mass/Vol] 0.50 mg/dL 0.20-1.00 [facility] Comment on above: For patients on eltr ombopag therapy, use of Dimension Lytle TBIL is not recommended. Chloride [Moles/Vol] 108 mmol/L 98-107 [facility] Glucose [Mass/Vol] 88 mg/dL 74-106 [facility] Potassium [Moles/Vol] 4.4 mmol/L 3.5-5.1 [facility] Protein [Mass/Vol] 7.4 g/dL 6.4-8.2 [facility] Sodium [Moles/Vol] 140 mmol/L 136-145 [facility] Direct bilirubinOrdered By: Dennise Pruitt on 10-08-2022 Bilirubin.direct [Mass/Vol] 0.16 mg/dL 0.00-0.30 [facility] - Chemistry and C hemistry - challengeOrdered By: Dennise Pruitt on 10-08-2022 ALP [Catalytic activity/Vol] 63 U/L 45-117 [facility] ALT [Catalytic activity/Vol] 69 U/L 16-61 [facility] CO2 [Moles/Vol] 30.0 mmol/L 21.0-32.0 [facility] Globulin (S) [Mass/Vol] 3.4 g/dL 2.2-4.2 [facility] Urea nitrogen/Creatinine [Mass ratio] 16.4 mg/mg 10-20 [facility] No Panel InformationOrdered By: Dennise Pruitt on 10-08-2022 Estimated GFR (MDRD) Amer 85 mL/min >60 [facility] Comment on above: GFR Calc Estimated GFR (MDRD) Non-Af Amer 70 mL/min >60 [facility] Comment on above: Non- GFR Calc Serum or plasma albumin joel urement (mass/volume)Ordered By: Dennise Pruitt on 10-08-2022 Albumin [Mass/Vol] 4.0 g/dL 3.2-5.0 [facility] Serum or plasma albumin/glob ulin mass ratioOrdered By: Dennise Pruitt on 10-08-2022 Albumin/Globulin [Mass ratio] 1.2 {ratio} 0.9-2.4 [facility] Serum or plasma calcium joel urement (mass/volume)Ordered By: Dennise Pruitt on 10-08-2022 Calcium [Mass/Vol] 9.3 mg/dL 8.5-10.1 [facility] Serum or plasma creatinine m easurement (mass/volume)Ordered By: Dennise Pruitt on 10-08-2022 Creatinine [Mass/Vol] 1.22 mg/dL 0.70-1.30 [facility] Comment on above: The validity of the calculated GFR & GFRAA in patients over 70 years has not been determined. Clinical correlation is essential. Serum or plasma urea nitroge n measurement (mass/volume)Ordered By: Dennise Pruitt on 10-08-2022 Urea nitrogen [Mass/Vol] 20 mg/dL 7-18 [facility] Thin prep Papanicolaou smear with manual screeningOrdered By: Dennise Pruitt on 10-08-2022 Thin prep Papanicolaou smear with manual screening 69 U/L 15-37 [facility] Thin prep Papanicolaou smear with manual screening 2 5-15 [facility] Basophil percentageOrdered B y: Dennise Pruitt on 04-03-2022 Bilirubin [Mass/Vol] 0.60 mg/dL 0.20-1.00 [facility] Comment on above: For patients on eltr ombopag therapy, use of Dimension Lytle TBIL is not recommended. Chloride [Moles/Vol] 104 mmol/L 98-107 [facility] Glucose [Mass/Vol] 87 mg/dL 74-106 [facility] Potassium [Moles/Vol] 4.3 mmol/L 3.5-5.1 [facility] Protein [Mass/Vol] 7.4 g/dL 6.4-8.2 [facility] Sodium [Moles/Vol] 139 mmol/L 136-145 [facility] Laboratory - Chemistry and C hemistry - challengeOrdered By: Dennise Pruitt on 04-03-2022 ALP [Catalytic activity/Vol] 57 U/L 45-117 [facility] ALT [Catalytic activity/Vol] 45 U/L 16-61 [facility] CO2 [Moles/Vol] 27.0 mmol/L 21.0-32.0 [facility] Globulin (S) [Mass/Vol] 2.9 g/dL 2.2-4.2 [facility] Urea nitrogen/Creatinine [Mass ratio] 30.9 mg/mg 10-20 [facility] No Panel InformationOrdered By: Dennise Pruitt on 04-03-2022 Estimated GFR (MDRD) Amer 125 mL/min >60 [facility] Comment on above: GFR Calc Estimated GFR (MDRD) Non-Af Amer 104 mL/min >60 [facility] Comment on above: Non- GFR Calc Serum or plasma albumin joel urement (mass/volume)Ordered By: Dennise Pruitt on 04-03-2022 Albumin [Mass/Vol] 4.5 g/dL 3.2-5.0 [facility] Serum or plasma albumin/glob ulin mass ratioOrdered By: Dennise Pruitt on 04-03-2022 Albumin/Globulin [Mass ratio] 1.6 {ratio} 0.9-2.4 [facility] Serum or plasma calcium joel urement (mass/volume)Ordered By: Dennise Pruitt on 04-03-2022 Calcium [Mass/Vol] 9.8 mg/dL 8.5-10.1 [facility] Serum or plasma creatinine m easurement (mass/volume)Ordered By: Dennise Pruitt on 04-03-2022 Creatinine [Mass/Vol] 0.87 mg/dL 0.70-1.30 [facility] Comment on above: The validity of the calculated GFR & GFRAA in patients over 70 years has not been determined. Clinical correlation is essential. Serum or plasma urea nitroge n measurement (mass/volume)Ordered By: Dennise Pruitt on 04-03-2022 Urea nitrogen [Mass/Vol] 27 mg/dL 7-18 [facility] Thin prep Papanicolaou smear with manual screeningOrdered By: Dennise Pruitt on 04-03-2022 Thin prep Papanicolaou smear with manual screening 42 U/L 15-37 [facility] Thin prep Papanicolaou smear with manual screening 8 5-15 [facility] Absolute lymphocyte countOrd ered By: Inés Mccann on 01-19-2022 Lymphocytes Auto (Unsp spec) [#/Vol] 2.22 10*3/uL 0.83-4.51 [facility] Basophil percentageOrdered B y: Inés Mccann on 01-19-2022 Amylase [Catalytic activity/Vol] 57 U/L 25-115 [facility] Basophils/100 WBC (Bld) 0.4 % 0-1 [facility] Bilirubin [Mass/Vol] 0.30 mg/dL 0.20-1.00 [facility] Comment on above: For patients on eltr ombopag therapy, use of Dimension Lytle TBIL is not recommended. Chloride [Moles/Vol] 106 mmol/L 98-107 [facility] Eosinophils/100 WBC (Bld) 1.4 % 0-5 [facility] Glucose [Mass/Vol] 99 mg/dL 74-106 [facility] Neutrophils (Bld) [#/Vol] 4.0 10*3/uL 2.0-7.7 [facility] Neutrophils/100 WBC (Bld) 57.9 % 47-70 [facility] Potassium [Moles/Vol] 4.0 mmol/L 3.5-5.1 [facility] Protein [Mass/Vol] 7.3 g/dL 6.4-8.2 [facility] Sodium [Moles/Vol] 138 mmol/L 136-145 [facility] WBC (Bld) [#/Vol] 6.9 10*3/uL 4.4-11.0 [facility] Blood erythrocytes count (nu mber/volume)Ordered By: Inés Mccann on 01-19-2022 RBC (Bld) [#/Vol] 4.97 10*6/uL 4.6-6.2 [facility] Blood hemoglobin measurement (mass/volume)Ordered By: Inés Mccann on 01-19-2022 Hemoglobin (Bld) [Mass/Vol] 14.5 g/dL 13.0-16.5 [facility] Blood lymphocytes/100 leukoc ytesOrdered By: Inés Mccann on 01-19-2022 Lymphocytes/100 WBC (Bld) 32.1 % 19-41 [facility] Blood monocytes/100 leukocyt esOrdered By: Inés Mccann on 01-19-2022 Monocytes/100 WBC (Bld) 7.9 % 0-10 [facility] Blood platelet mean volumeOr dered By: Inés Mccann on 01-19-2022 Platelet mean volume (Bld) [Entitic vol] 10.3 fL 6.2-12.0 [facility] Determination of erythrocyte mean corpuscular volume (MCV)Ordered By: Inés Ramy on 01-19-2022 MCV (RBC) [Entitic vol] 86.9 fL 80-94 [facility] Hematocrit Auto (Bld) [Volum e fraction]Ordered By: [facility] on 01-19-2022 Hematocrit (Bld) [Volume fraction] 43.2 % 40-54 [facility] - Chemistry and C hemistry - challengeOrdered By: [facility] on 01-19-2022 ALP [Catalytic activity/Vol] 47 U/L 45-117 [facility] ALT [Catalytic activity/Vol] 36 U/L 16-61 [facility] CO2 [Moles/Vol] 24.0 mmol/L 21.0-32.0 [facility] Globulin (S) [Mass/Vol] 3.3 g/dL 2.2-4.2 [facility] Lipase [Catalytic activity/Vol] 336 U/L 73-393 [facility] Urea nitrogen/Creatinine [Mass ratio] 18.8 mg/mg 10-20 [facility] Laboratory - Hematology and Cell countsOrdered By: [facility] on 01-19-2022 Erythrocyte distribution width (RBC) [Entitic vol] 40.6 fL 35.1-43.9 [facility] Erythrocyte distribution width (RBC) [Ratio] 12.9 % 11.6-14.6 [facility] Immature granulocytes/100 WBC (Bld) 0.300 % 0.0-0.9 [facility] Comment on above: IG% - Immature Granu locytes (promyelocytes, myelocytes and metamyelocytes) > 1% indicates that a LEFT SHIFT is Present. MCH (RBC) [Entitic mass] 29.2 pg 27.0-32.0 [facility] Nucleated RBC/100 WBC (Bld) [Ratio] 0 % 0-5 [facility] MCHC Auto (RBC) [Mass/Vol]Or dered By: [facility] Ramy on 01-19-2022 MCHC (RBC) [Mass/Vol] 33.6 g/dL 32-36 [facility] No Panel InformationOrdered By: [facility] on 01-19-2022 Estimated GFR (MDRD) Amer 90 mL/min >60 [facility] Comment on above: GFR Calc Estimated GFR (MDRD) Non-Af Amer 74 mL/min >60 [facility] Comment on above: Non- GFR Calc Platelets bldOrdered By: Desmond Mccann on 01-19-2022 Platelets (Bld) [#/Vol] 244 10*3/uL 150-450 [facility] Serum or plasma albumin joel urement (mass/volume)Ordered By: Inés Mccann on 01-19-2022 Albumin [Mass/Vol] 4.0 g/dL 3.2-5.0 [facility] Serum or plasma albumin/glob ulin mass ratioOrdered By: Inés Mccann on 01-19-2022 Albumin/Globulin [Mass ratio] 1.2 {ratio} 0.9-2.4 [facility] Serum or plasma calcium joel urement (mass/volume)Ordered By: Inés Mccann on 01-19-2022 Calcium [Mass/Vol] 9.1 mg/dL 8.5-10.1 [facility] Serum or plasma creatinine m easurement (mass/volume)Ordered By: Inés Mccann on 01-19-2022 Creatinine [Mass/Vol] 1.17 mg/dL 0.70-1.30 [facility] Comment on above: The validity of the calculated GFR & GFRAA in patients over 70 years has not been determined. Clinical correlation is essential. Serum or plasma urea nitroge n measurement (mass/volume)Ordered By: Inés Mccann on 01-19-2022 Urea nitrogen [Mass/Vol] 22 mg/dL 7-18 [facility] Thin prep Papanicolaou smear with manual screeningOrdered By: Inés Mccann on 01-19-2022 Thin prep Papanicolaou smear with manual screening 29 U/L 15-37 [facility] Thin prep Papanicolaou smear with manual screening 8 5-15 [facility] Vital Signs Date Time Vital Sign Value Performing Clinician Sandy magdaleno 09-16-2024 12:53-0400 Body temperature 98.29 [degF] Winter Castro APRN.PATHOLOGY SUPERVISOR Work Phone: [facility] 09-16-2024 12:53-0400 Body weight 117 kg Winter Castro PROPERTY CARETAKER.PATHOLOGY SUPERVISOR Work Phone: [facility] 09-16-2024 12:53-0400 Diastolic blood pressure 80 mm[Hg] Winter Castro PROPERTY CARETAKER.PATHOLOGY SUPERVISOR Work Phone: [facility] 09-16-2024 12:53-0400 Heart rate 88 /min Winter Castro PROPERTY CARETAKER.PATHOLOGY SUPERVISOR Work Phone: [facility] 09-16-2024 12:53-0400 Respiratory rate 16 /min Winter Castro PROPERTY CARETAKER.PATHOLOGY SUPERVISOR Work Phone: [facility] 09-16-2024 12:53-0400 SaO2% (BldA) [Mass fraction] 98 % Winter Castro PROPERTY CARETAKER.PATHOLOGY SUPERVISOR Work Phone: [facility] 09-16-2024 12:53-0400 Systolic blood pressure 122 mm[Hg] Winter Castro PROPERTY CARETAKER.PATHOLOGY SUPERVISOR Work Phone: [facility] Encounters Encounter Date Encounter Type Care Provider Facility Start: 01-15-2025 ambulatory Denny Mei Facilit y:[facility] Start: 01-07-2025 ambulatory Denny Eliazar Mei Facilit y:[facility] Start: 09-16-2024 End: 09-16-2024 Patient encounter procedure Winter Castro PROPERTY CARETAKER.PATHOLOGY SUPERVISOR Work Phone: [facility] Comment on above: Rhus dermatitis (Flaquita michelle Dx); Secondary infection of skin Start: 09-16-2024 End: 09-16-2024 ambulatory [facility] Facility:[facility] Start: 10-29-2022 End: 10-29-2022 ambulatory [facility] Work Phone: Start: 10-29-2022 End: 10-29-2022 Patient encounter procedure [facility] Work Phone: Start: 10-26-2022 End: 10-26-2022 ambulatory [facility] Work Phone: Start: 10-26-2022 End: 10-26-2022 Patient encounter procedure [facility] Work Phone: Start: 10-08-2022 End: 10-08-2022 [facility] Start: 04-03-2022 End: 04-03-2022 ambulatory [facility] Work Phone: Start: 04-03-2022 End: 04-03-2022 Patient encounter procedure [facility] Start: 02-05-2022 End: 02-05-2022 ambulatory [facility] Work Phone: Start: 02-05-2022 End: 02-05-2022 Patient encounter procedure [facility] Start: 01-19-2022 End: 01-19-2022 Patient encounter procedure [facility] Procedures Date Procedure Procedure Detail Performing Clinician Start: 02-05-2022 CT of abdomen Plan of Treatment Date Care Activity Detail Author Start: 02-09-2028 Urine microalbumin profile DTa P,Tdap,Td Vaccine (2 - Td or Tdap) [facility] Start: 11-09-2024 Influenza vaccination Influenza Vacc ine (#1) [facility] Start: 11-10-2023 Covid-19 Vaccine ( season) Covid-19 Vaccine ( season) [facility] Start: 11-16-2018 Lipid panel Lipid Screening [facility] Start: 11-16-2002 Hepatitis B Vaccine (1 of 3 - 19+ 3-dose series) Hepatitis B Vaccine (1 of 3 - 19+ 3-dose series) [facility] Start: 11-16-2001 Anxiety Screening Anxiety Screening [facility] Start: 11-16-2001 [facility] Start: 11-16-2001 Hepatitis C screening Hepatitis C Sc adarsh [facility] Start: 11-16-2001 HIV screening HIV Screening [facility] Immunizations Immunization Date Immunization Notes Care Provider Fa sienna 02-08-2018 tetanus toxoid, redu cristina diphtheria toxoid, and acellular pertussis vaccine, adsorbed [facility] Payers Date Payer Category Payer Self-pay [id number] 2018 Private Health Insurance MMO [employer] PPO [id number] 2018 Unknown [id number] 2015 Unknown RUSS [id number] Unknown [id number] Unknown [id number] Social History Date Type Detail Facility Start: 10-08-2019 End: 10-08-2019 Tobacco smoking status NHIS Unknown if ever smoked [facility] Start: 1985 Sex Assigned At Male [facility] Start: 02-14-2023 Tobacco smoking stat us NHIS Never smoked tobacco [facility] Start: 02-14-2023 Tobacco use and exposure Former smokeless tobacco user [facility] Start: 02-16-2020 End: 09-16-2024 History of Social function [facility] Start: 02-16-2020 End: 09-16-2024 Tobacco use panel [facility] National Score (1-100), lower number is lower risk Not on file [facility] Start: 1985 Sex assigned at Not on file [facility] Progress note 09-16-2024 Note Date & Type Note Facility 09-16-2024 Note HNO ID: [id number] Author: WINTER CASTRO APRN.PATHOLOGY SUPERVISOR Service: ? Author Type: Nurse Practitioner Type: Progress Notes Filed: 09/16/2024 13:20 Note Text: [facility] Subjective HPI HPI Pedrito Ojeda is a 38 year old male who presents today for CC of itchy rash, 1 painful spot. This started few days ago. Has tried otc medication for relief. Symptoms are worsened by nothing. Risk factors works with [employer]. .Patient presents with: poison layla: X 2 days left leg History reviewed. No pertinent past medical history. No past surgical history on file. ALLERGIES Patient has no known allergies. MEDICATIONS predniSONE (DELTASONE) 10 mg tablet Take 4 tablets by mouth once daily for 3 days, THEN 3 tablets once daily for 3 days, THEN 2 tablets once daily for 3 days, THEN 1 tablet once daily for 3 days. doxycycline monohydrate 100 mg tablet Take 1 tablet by mouth two times a day for 7 days. triamcinolone acetonide (KENALOG) 0.1 % cream Apply to affected area two times a day. No family history on file. Social History Tobacco Use Smoking status: Never Smokeless tobacco: Former Review of Systems Constitutional: Negative for fever. Musculoskeletal: Negative for arthralgias, joint swelling and myalgias. Skin: Positive for rash. Negative for wound. Objective BP 122/80 Pulse 88 Temp 36.8 ?C (98.3 ?F) (Tympanic) Resp 16 Wt 117 kg (257 lb 15 oz) SpO2 98% Physical Exam Constitutional: General: He is not in acute distress. Appearance: He is not toxic-appearing or diaphoretic. HENT: Head: Normocephalic and atraumatic. Skin: General: Skin is warm and dry. Findings: Rash present. Rash is vesicular (distribution linear ). Neurological: Mental Status: He is alert and oriented to person, place, and time. {ASSESSMENT/PLAN: 1. Rhus dermatitis - ICD9: 692.6, ICD10: L25.5 (primary diagnosis) - Oral Steriod tx -Prednisone taper - Topical steriod tx with Rx for steriod cream/ointment- see orders - discussed skin care of rash - follow up if symptoms persist or worsen. - PREDNISONE 10 MG TABLET - TRIAMCINOLONE ACETONIDE 0.1 % TOPICAL CREAM 2. Secondary infection of skin - ICD9: 686.8, ICD10: L08.89 -use medication as prescribed -follow up if symptoms persist, worsen, change - DOXYCYCLINE MONOHYDRATE 100 MG TABLET Winter Castro APRN.GUZMAN History and Record Review External record(s) reviewed: prior outpatient record. Disposition The patient was discharged. Procedures [facility] History of Present illness Narrative 09-16-2024 Winter Castro APRN.CNP - 09/16/2024 1:06 PM EDT Note Date & Type Note Facility 09-16-2024 History of Presen t illness Narrative Images from the original note were not included. [facility] Subjective HPI HPI Pedrito Ojeda is a 38 year old male who presents today for CC of itchy rash, 1 painful spot. This started few days ago. Has tried otc medication for relief. Symptoms are worsened by nothing. Risk factors works with [employer]. .Patient presents with: poison layla: X 2 days left leg History reviewed. No pertinent past medical history. No past surgical history on file. ALLERGIES Patient has no known allergies. MEDICATIONS predniSONE (DELTASONE) 10 mg tablet Take 4 tablets by mouth once daily for 3 days, THEN 3 tablets once daily for 3 days, THEN 2 tablets once daily for 3 days, THEN 1 tablet once daily for 3 days. doxycycline monohydrate 100 mg tablet Take 1 tablet by mouth two times a day for 7 days. triamcinolone acetonide (KENALOG) 0.1 % cream Apply to affected area two times a day. No family history on file. Social History Tobacco Use Smoking status: Never Smokeless tobacco: Former Review of Systems Constitutional: Negative for fever. Musculoskeletal: Negative for arthralgias, joint swelling and myalgias. Skin: Positive for rash. Negative for wound. Objective BP 122/80 Pulse 88 Temp 36.8 C (98.3 F) (Tympanic) Resp 16 Wt 117 kg (257 lb 15 oz) SpO2 98% Physical Exam Constitutional: General: He is not in acute distress. Appearance: He is not toxic-appearing or diaphoretic. HENT: Head: Normocephalic and atraumatic. Skin: General: Skin is warm and dry. Findings: Rash present. Rash is vesicular (distribution linear ). Neurological: Mental Status: He is alert and oriented to person, place, and time. {ASSESSMENT/PLAN: 1. Rhus dermatitis - ICD9: 692.6, ICD10: L25.5 (primary diagnosis) - Oral Steriod tx -Prednisone taper - Topical steriod tx with Rx for steriod cream/ointment- see orders - discussed skin care of rash - follow up if symptoms persist or worsen. - PREDNISONE 10 MG TABLET - TRIAMCINOLONE ACETONIDE 0.1 % TOPICAL CREAM 2. Secondary infection of skin - ICD9: 686.8, ICD10: L08.89 -use medication as prescribed -follow up if symptoms persist, worsen, change - DOXYCYCLINE MONOHYDRATE 100 MG TABLET Winter Castro APRN.CNP History and Record Review External record(s) reviewed: prior outpatient record. Disposition The patient was discharged. Procedures documented in this encounter [facility] Evaluation note Note Date & Type Note Facility Evaluation note No assessment information [facility] Work Phone: Evaluation note Note Date & Type Note Facility Evaluation note Diagnosis Rhus dermatitis- Primary Contact dermatitis and other eczema due to plants (except food) Secondary infection of skin Other specified local infections of skin and subcutaneous tissue documented in this encounter [facility] [place] Chief Complaint and Reason for Visit Chief Complaint ABDOMINAL PAIN Chief Complaint FATTY LIVER EORDER Advance Directives No Advanced Directives Records Found Advance Directive Response Recorded Date/ Time Living Will No October 08, 2019 9:52pm Power of Propellant Charge Zone Assembler No October 07 0 9:52pm Advance Directive Response Recorded Date/ Time Living Will No October 08, 2019 10:52pm Power of Propellant Charge Zone Assembler No October 07 0 10:52pm Summary Purpose Family History No Family History Records FoundNo Family History Records Found Additional Source Comments Goals (unrecognized section and content) Goals may be documented in a n alternate sectionGoals may be documented in an alternate sectionGoals may be documented in an alternate sectionGoals may be documented in an alternate section Care Teams (unrecognized sec tion and content) Team Status: Active Member Role Status Dates Dr. Denny White MD Family Provider Active Dr. Denny Mei MD Primary Care Provider Active Team Status: Inactive Member Role Status Dates Dr. Denny Mei MD Primary Care Pr ovider, Attending Provider, Referring Provider Active Team Status: Inactive Member Role Status Dates Dr. Denny Mei MD Primary Care Provider Active KASSANDRA Serna Attending Provider, Referr ing Provider Active Team Status: Inactive Member Role Status Dates Dr. Denny Mei MD Primary Care Provider, Referr ing Provider Active KASSANDRA Van Attending Provider Active Team Status: Inactive Member Role Status Dates Dr. Denny Mei MD Primary Care Provider Active KASSANDRA Van Attending Provider Active Team Status: Active Member Role Status Dates Dr. Denny Mie MD Primary Care Provider Active KASSANDRA Van Attending Provider, Referring Pr ovider Active Team Status: Inactive Member Role Status Dates Dr. Denny Mei MD Primary Care Provider Active KASSANDRA Van Attending Provider, Referring Pr ovider Active County Engineer Relationship Specialty Start Date End Date Denny Mei MD [address] [facility] [address] [place] [address] PCP - General Family Medicine 09/16/24 Source Comments (unrecognize d section and content) In the event this informatio n is protected by the Federal Confidentiality of Alcohol and Drug Abuse Patient Records regulations: The Federal rules restrict any use of the information to criminally investigate or prosecute any alcohol or drug abuse patient.[facility] [place] Reason for Visit (unrecogniz ed section and content) Reason Comments poison layla X 2 days left leg (unrecognized sect ion and content) No Status Records FoundNo Status Records Found INFORMATION SOURCE (unrecogn ized section and content) DATE CREATED AUTHOR 09/20/2024 [facility] DATE CREATED AUTHOR 'S ORGANIZ ATION 01/12/2025 [facility] FOR RECORDS PERTAINING TO PATIENTS WHO ARE [...] BE BASED ON THE PRIMARY CLINICAL RECORDS. [facility] [employer] provides no warranty or guarantee of the accuracy or completeness of information in this document.
== END | disposition home or self-care (01) ==
LOC: US 07:06
PROVIDERS: PCP Family Medicine; Referring Provider Family Medicine; Visit Provider Family Medicine
DX: K70.0 Alcoholic fatty liver (principal)
CPT/HCPCS: 76705